=== PATIENT | male | born 1990 | race Caucasian/White ===

== ENCOUNTER → 2016-03-06 | Outpatient (CLI) | payer BC ==
[~2016-03-06] MED LIST: ACHD5005 PO; AMPH30TA2 PO; BARIUM SUSPENSION 105% (LIQUID POLIBAR PLUS) 240 ML/DOSE PO ONE; BARIUM SUSPENSION 60% (LIQUID EZ PAQUE) 240 ML DOSE PO ONE; CYCL10TA9 PO; DICY20TA57 PO; HYDR-3730 PO; NAPR-243 PO; ONDA-42 PO; PANT20TA2 PO; SULF1TAB35 PO; SULF1TAB38 PO
--- OUTSIDE RECORDS SUMMARY | 2016-03-06 09:05 | XMS REPORT | Continuity of Care Document ---
Author Author [facility] Organization [facility] Address Unknown Phone Unavailable Care Team Providers Care Senior It Engineer Name Role Phone RAI AL MD PCP Insurance Providers Payer Name Policy Number Subscriber Name Relationship [employer] [id number] Dean Del Rosario 20 Self / Same As Patient Advance Directives Directive Response Recorded Date/Time Advance Directives No 11/05/13 4:10am Organ Donor Yes 11/05/13 4:10am Resuscitation Status Full Code 11/05/13 4:10am Problems Medical Problems Problem Onset Date Status Abdominal pain Unknown Active Volume depletion Unknown Active Medications Medication Dose Route Sig Days/Qty Instructions Order Date Discontinued Date Status Trimethoprim/Sulfamethoxazole 1 Each PO TWICE A DAY 07/23/11 Discontinued Trimethoprim/Sulfamethoxazole 1 Ea PO TWICE A DAY 7 Days 07/23/1112/06 Discontinued Acetaminophen/Hydrocodone Bitart 1 - 2 Each PO EVERY 6 HOURS PRN 20 Qty 07/23/11 12/05/11 Discontinued Naproxen 1 Each PO TWICE A DAY PRN 30 Qty 07/23/11 12/05/11 Discontinued Amphet Asp/Amphet/D-Amphet 30 Mg PO TWICE A DAY 11/05/13 Active Social History Social History Problem Response Recorded Date/Time Alcohol Use Occasionally Uses 11/05/2013 4:10am Recreational Drug Use No 11/05/2013 4:10am Smoking Status Never a Smoker 11/05/2013 4:10am Query Response Start Date Stop Date Smoking Status Never a Smoker Hospital Discharge Instructions No hospital discharge instructions. Plan of Care No plan of care. Functional Status Query Response Date Recorded Patient Orientation Person Place Time November 05, 2013 4:15am Comprehension Ability Understands Concepts November 05, 2013 4:15am Allergies, Adverse Reactions, Alerts Allergen Type Severity Reaction Status Last Updated No Known Drug Allergies Active 07/23/11 Immunizations No immunization records. Vital Signs Acute Vital Signs Vital Response Date/Time Temperature (Fahrenheit) 96.5 degrees F (97.6 - 99.5) Temperature (Calculated Celsius) 35.62713 degrees C (36.4 - 37.5) Temperature Source Temporal Pulse Rate (adult) 70 bpm (60 - 90) Respiratory Rate 22 bpm (12 - 24) O2 Sat by Pulse Oximetry 98 % (88 - 100) Blood Pressure 126/66 mm Hg Pain Pain Intensity 0 Height (Feet) 6 feet Height (Inches) 2 inches Height (Calculated Centimeters) 187.557967 cm Weight (Pounds) 212 pounds Weight (Calculated Grams) 93433.182 gm Weight (Calculated Kilograms) 96.856787 kilograms Calculated BMI 27.22 Results Test Source Date Result Interp. Ref. Range Comments Alanine Aminotransferase (ALT/SGPT) December 05, 2011 1:00pm 57 U/L N 30- 65 Albumin December 05, 2011 1:00pm 4.4 G/DL N 3.4-5.0 Alkaline Phosphatase December 05, 2011 1:00pm 105 U/L N 50-136 Aspartate Amino Transf (AST/SGOT) December 05, 2011 1:00pm 31 U/L N 15- 37 BUN/Creatinine Ratio December 05, 2011 1:00pm 22 - Basophils # (Auto) December 05, 2011 1:00pm 0.0 10^3/uL N 0.0-0.1 Basophils (%) (Auto) December 05, 2011 1:00pm 1 % N 0-10 Blood Urea Nitrogen December 05, 2011 1:00pm 33 MG/DL H 7-18 Calcium Level December 05, 2011 1:00pm 8.9 MG/DL N 8.5-10.1 Carbon Dioxide Level December 05, 2011 1:00pm 27 MMOL/L N 21-32 Chloride Level December 05, 2011 1:00pm 100 MMOL/L L 101-110 Creatinine December 05, 2011 1:00pm 1.5 MG/DL H 0.6-1.3 Eosinophils # (Auto) December 05, 2011 1:00pm 0.0 10^3/uL N 0.0-0.3 Eosinophils (%) (Auto) December 05, 2011 1:00pm 1 % N 0-10 Glucose Level December 05, 2011 1:00pm 85 MG/DL N 74-106 Hematocrit December 05, 2011 1:00pm 41 % N 40-54 Hemoglobin December 05, 2011 1:00pm 14.7 G/DL N 13.3-17.7 Lymphocytes # (Auto) December 05, 2011 1:00pm 1.6 X 10^3 N 1.0-4.0 Lymphocytes (%) (Auto) December 05, 2011 1:00pm 41 % N 12-44 Mean Corpuscular Hemoglobin December 05, 2011 1:00pm 32 PG N 25-34 Mean Corpuscular Hemoglobin Concent December 05, 2011 1:00pm 36 G/DL N 32 -36 Mean Corpuscular Volume December 05, 2011 1:00pm 88 FL N 80-99 Mean Platelet Volume December 05, 2011 1:00pm 11.5 FL H 7.4-10.4 Monocytes # (Auto) December 05, 2011 1:00pm 0.4 X 10^3 N 0.0-1.0 Monocytes (%) (Auto) December 05, 2011 1:00pm 11 % N 0-12 Neutrophils # (Auto) December 05, 2011 1:00pm 1.9 X 10^3 N 1.8-7.8 Neutrophils (%) (Auto) December 05, 2011 1:00pm 46 % N 42-75 Platelet Count December 05, 2011 1:00pm 192 10^3/uL N 130-400 Potassium Level December 05, 2011 1:00pm 4.2 MMOL/L N 3.6-5.0 Red Blood Count December 05, 2011 1:00pm 4.67 10^6/uL N 4.35-5.85 Red Cell Distribution Width December 05, 2011 1:00pm 12.4 % N 10.0-14.5 Sodium Level December 05, 2011 1:00pm 138 MMOL/L N 135-145 Total Bilirubin December 05, 2011 1:00pm 0.9 MG/DL N 0.0-1.0 Total Protein December 05, 2011 1:00pm 7.5 G/DL N 6.4-8.2 Urine Bacteria July 23, 2011 3:02pm NEGATIVE - Has specimen been collected/obtained? YSpecimen Description CLEAN CATCH Urine Bilirubin July 23, 2011 3:02pm NEGATIVE - Has specimen been collected/obtained? YSpecimen Description CLEAN CATCH Urine Casts July 23, 2011 3:02pm NONE - Has specimen been collected/ obtained? YSpecimen Description CLEAN CATCH Urine Clarity July 23, 2011 3:02pm CLEAR - Has specimen been collected /obtained? YSpecimen Description CLEAN CATCH Urine Color July 23, 2011 3:02pm YELLOW - Has specimen been collected/ obtained? YSpecimen Description CLEAN CATCH Urine Crystals July 23, 2011 3:02pm NONE - Has specimen been collected /obtained? YSpecimen Description CLEAN CATCH Urine Culture Indicated July 23, 2011 3:02pm NO - Has specimen been collected/obtained? YSpecimen Description CLEAN CATCH Urine Glucose (UA) July 23, 2011 3:02pm NEGATIVE - Has specimen been collected/obtained? YSpecimen Description CLEAN CATCH Urine Ketones July 23, 2011 3:02pm NEGATIVE - Has specimen been collected/obtained? YSpecimen Description CLEAN CATCH Urine Leukocyte Esterase July 23, 2011 3:02pm NEGATIVE - Has specimen been collected/obtained? YSpecimen Description CLEAN CATCH Urine Mucus July 23, 2011 3:02pm NEGATIVE - Has specimen been collected/obtained? YSpecimen Description CLEAN CATCH Urine Nitrite July 23, 2011 3:02pm NEGATIVE - Has specimen been collected/obtained? YSpecimen Description CLEAN CATCH Urine Protein July 23, 2011 3:02pm NEGATIVE - Has specimen been collected/obtained? YSpecimen Description CLEAN CATCH Urine RBC July 23, 2011 3:02pm RARE /HPF - Has specimen been collected /obtained? YSpecimen Description CLEAN CATCH Urine Specific [place] July 23, 2011 3:02pm 1.015 L - Has specimen been collected/obtained? YSpecimen Description CLEAN CATCH Urine Urobilinogen July 23, 2011 3:02pm NORMAL MG/DL - Has specimen been collected/obtained? YSpecimen Description CLEAN CATCH Urine WBC July 23, 2011 3:02pm RARE /HPF - Has specimen been collected /obtained? YSpecimen Description CLEAN CATCH Urine pH July 23, 2011 3:02pm 6.0 - Has specimen been collected/ obtained? YSpecimen Description CLEAN CATCH White Blood Count December 05, 2011 1:00pm 4.0 10^3/uL L 4.3-11.0 Serum Alcohol July 23, 2011 2:17pm < 5 MG/DL -5 Estimat Glomerular Filtration Rate December 05, 2011 1:00pm 60 - GFR INTERPRETIVE DATA UNITS FOR ESTIMATED GFR (eGFR): mL/min/1.73 M2 REFERENCE RANGE FOR ESTIMATED GFR (eGFR) eGFR NORMAL eGFR >60 MODERATELY DECREASED eGFR 30-59 SEVERLY DECREASED eGFR 15-29 KIDNEY FAILURE <15 (OR DIALYSIS) Urine RBC (Auto) July 23, 2011 3:02pm NEGATIVE - Has specimen been collected/obtained? YSpecimen Description CLEAN CATCH MRSA Screen Nasal December 05, 2011 1:00pm MRSA not isolated Procedures Procedure Status Date Provider(s) Tracing only of electrocardiogram completed 11/05/13 JANETH BRAVO MD Encounters Encounter Location Date/Time Registered Emergency Room [facility] 11/05/13 4:06am Recent Diagnosis
--- NOTE | 2016-03-06 10:59 | Diagnostic Imaging Report ---
EXAMINATION: Upper GI study, double contrast. Set Up Machinist image of the abdomen was performed. After the oral administration of gas forming granules, the patient drank thick and thin barium with visualization under fluoroscopy, with spot images taken over the esophagus, stomach and duodenum and followed by overhead images in the chest and abdomen. INDICATION: Dyspepsia. FLUOROSCOPY TIME: One minutes and 17 seconds. FINDINGS: Set Up Machinist images of the abdomen demonstrate moderate amount of fecal material. The esophagus demonstrates normal caliber with no strictures. The mucosal pattern demonstrates no filling defects, diverticulum or ulceration. There is normal relaxation of the distal sphincter. There is no hiatal hernia. The stomach demonstrates normal distensibility with normal appearance of the mucosal folds. There are no ulcers or evidence of mass. The duodenal bulb and sweep appear normal. IMPRESSION: Unremarkable double-contrast upper GI study. Dictated by: Dictated on workstation # [id number]
== END ==
LOC: RAD 09:01
PROVIDERS: ATTEND Family Medicine
DX: R10.13 Epigastric pain (principal)
CPT/HCPCS: 74241